=== PATIENT | male | born 1930 | race Caucasian/White ===

== ENCOUNTER → 2017-12-29 | Outpatient (CLI) | payer OTHER ==
[~2017-12-29] MED LIST: Cyclobenzaprine5 MG PO; DOCU100 PO; DOFE250; HYDACE5 PO; HYDR.5TC; MELA3 PO; METO25ER PO; METO50ER; MULVITMIND PO; PSYL5.85P PO; Percocet 5-3251 EACH PO; RXHYDACE PO; TAMS.4ER PO; WARF4 PO; WARF5
== END | disposition home or self-care (01) ==
LOC: LAB SHORT 07:54 → PLD 07:54
DX: C44.329 Squamous cell carcinoma of skin of other parts of face (principal)
CPT/HCPCS: 88305; 88341; 88342